=== PATIENT | male | born 1965 | race Caucasian/White ===

== ENCOUNTER → 2023-04-04 09:24 | Outpatient (REF) | payer OTHER, SELFPAY | LOC: HWRAD 09:24 | PROVIDERS: ATTENDING PHYSICIAN Family Medicine | DX: R10.10 Upper abdominal pain, unspecified (principal) | CPT/HCPCS: 76700 ==

== ENCOUNTER → 2023-09-03 07:16 | Outpatient (REF) | payer OTHER, SELFPAY | LOC: RAD 07:16 | PROVIDERS: ATTENDING PHYSICIAN Internal Medicine Gastroenterology; FAMILY PHYSICIAN Family Medicine | DX: R11.0 Nausea (principal) | CPT/HCPCS: 78264; A9541 ==

== ENCOUNTER → 2023-12-22 06:28 | Day surgery (SDC) | payer OTHER, SELFPAY ==
[2023-12-22 07:43] LABS: Glucose - Point of Care 138 mg/dl (70-99)
== END ==
LOC: GI 06:28
PROVIDERS: ATTENDING PHYSICIAN Internal Medicine Gastroenterology
DX: D12.3 Benign neoplasm of transverse colon (principal); D12.5 Benign neoplasm of sigmoid colon; D12.8 Benign neoplasm of rectum; E61.1 Iron deficiency; K64.8 Other hemorrhoids; K29.70 Gastritis, unspecified, without bleeding; K31.7 Polyp of stomach and duodenum
CPT/HCPCS: 45385; 45380; 43251; 88305; 82962; 88342

== ENCOUNTER → 2024-02-03 16:29 | Outpatient (REF) | payer OTHER, SELFPAY | LOC: HWRAD 16:29 | PROVIDERS: ATTENDING PHYSICIAN Family Medicine | DX: M72.2 Plantar fascial fibromatosis (principal); M79.672 Pain in left foot | CPT/HCPCS: 73650 ==

== ENCOUNTER → 2024-04-01 17:23 | Outpatient (REF) | payer OTHER, SELFPAY | LOC: MRI 3T 17:23 | PROVIDERS: ATTENDING PHYSICIAN Specialist; FAMILY PHYSICIAN Family Medicine | DX: R97.20 Elevated prostate specific antigen [PSA] (principal) | CPT/HCPCS: 72197; A9575 ==

== ENCOUNTER → 2024-10-16 12:20 | Outpatient (REF) | payer OTHER, SELFPAY | LOC: PAVMRI 12:20 | PROVIDERS: ATTENDING PHYSICIAN Student in an Organized Health Care Education/Training Program; FAMILY PHYSICIAN Family Medicine | DX: M25.561 Pain in right knee (principal) | CPT/HCPCS: 73721 ==